=== PATIENT | female | born 1950 | race Two or more races ===

== ENCOUNTER 2017-11-12 09:00 | Inpatient (IN) | payer OTHER ==
[~2017-11-12] VITALS: Ht 157.5 cm; Wt 122.5 kg
[2017-11-17] MEDS ORDERED: TIZANIDINE HCL4 MG PO (11:18)
[2017-11-17] MEDS ORDERED: VOLTAREN100 GM (11:18)
[2017-11-17] MEDS ORDERED: PREVACID15 M1 PO (11:18)
[2017-11-17] MEDS ORDERED: HYOSCYAMINE0.125 M1 SL (11:19)
[2017-11-17] MEDS ORDERED: ZANTAC300 MG PO (11:19)
[2017-11-27] MEDS ORDERED: HYOSCYAMINE0.125 M1 SL (08:24)
[2017-11-27] MEDS ORDERED: Intestinex CAP PO (08:24)
[2017-11-27] MEDS ORDERED: ULTRACET PO (08:29)
== END 2017-11-27 12:03 | disposition home or self-care (01) | DRG 330 ==
LOC: O/R 11-23 06:25 → SURH 11-23 06:25 → O/R 11-23 08:45 → SURH 11-23 13:04
PROVIDERS: Surgery
PROC: 0DTF4ZZ Resection of Right Large Intestine, Percutaneous Endoscopic Approach (ICD-10-PCS; principal; 2017-11-23 08:45)
DX: D17.5 Benign lipomatous neoplasm of intra-abdominal organs (principal); K56.0 Paralytic ileus; D37.4 Neoplasm of uncertain behavior of colon

== ENCOUNTER 2019-07-01 07:34 | Outpatient (CLI) | payer OTHER ==
[~2019-07-01 07:34] MED LIST: HYOSCYAMINE0.125 M1 SL; Intestinex CAP PO; PREVACID15 M1 PO; TIZANIDINE HCL4 MG PO; ULTRACET PO; VOLTAREN100 GM; ZANTAC300 MG PO
== END 2019-07-01 07:38 | disposition home or self-care (01) ==
LOC: RX STUDY 07:34
DX: R10.84 Generalized abdominal pain (principal)

== ENCOUNTER 2020-06-12 07:10 | Outpatient (CLI) | payer OTHER | END 2020-06-12 07:14 | disposition home or self-care (01) | LOC: NUCLEAR 07:10 | PROVIDERS: ATTEND Internal Medicine Cardiovascular Disease | DX: I25.9 Chronic ischemic heart disease, unspecified (principal); I65.02 Occlusion and stenosis of left vertebral artery | CPT/HCPCS: 78452; 93017; A9500; J0153 ==